=== PATIENT | female | born 1940 | race Caucasian/White ===

== ENCOUNTER 2021-06-13 15:19 | Inpatient (IN) | payer MEDICARE, OTHER ==
[~2021-06-13] VITALS: Ht 162.6 cm; Wt 45.8 kg
[~2021-06-13 15:19] MED LIST: ASPIRIN EC325 MG PO; ATENOLOL25 MG PO; CARAFATE S500 MG/TSP PO; CERTAGEN1 EACH PO; LIPITOR20 MG PO; NORCO 5-325 TA1 EACH PO; NORVASC5 MG PO
[2021-06-13 17:32] LABS: BASOPHIL 0.5 % (0-2); EOSINOPHIL 1.8 % (0-7); HCT 36.7 % (37.0-47.0); LYMPHOCYTE 11.4 % (15-48); MCH 31.2 pg (25.0-31.0); MCHC 32.7 g/dL (32.0-36.0); MCV 95.3 fL (78.0-100.0); MPV 10.6 fL (6.0-9.5); NRBC 0; PLT 224 K/uL (150-400); RBC 3.85 M/uL (4.20-5.40); WBC 6.7 K/uL (4.0-10.5)
[2021-06-13 17:59] LABS: ALBUMIN 3.2 g/dL (3.4-5.0); BILIRUBIN - TOTAL 0.4 mg/dL (0.2-1.0); BUN/CREAT RATIO (CALC) 13.1 RATIO; CREATININE 1.07 mg/dL (0.51-0.95); POTASSIUM 5.3 mmol/L (3.5-5.1); TOTAL PROTEIN 6.2 g/dL (6.4-8.2)
[2021-06-13] MEDS ORDERED: NORVASC5 MG PO (23:17)
[2021-06-13] MEDS ORDERED: LIPITOR20 MG PO (23:18)
[2021-06-13] MEDS ORDERED: ASPIRIN325 MG PO (23:18)
[2021-06-13] MEDS ORDERED: ONE-DAILY MULT1 EACH PO (23:19)
[2021-06-13] MEDS ORDERED: PROTONIX 40MG T40 MG PO (23:20)
[2021-06-14 04:16] LABS: BASOPHIL 0.8 % (0-2); HCT 36.2 % (37.0-47.0); HGB 11.6 g/dl (12.5-16.0); LYMPHOCYTE 16.8 % (15-48); MCH 30.5 pg (25.0-31.0); MCV 95.3 fL (78.0-100.0); MONOCYTE 12.8 % (0-12); MPV 11.2 fL (6.0-9.5); NEUTROPHIL 67.3 % (41-80); NRBC 0; PLT 229 K/uL (150-400); RDW 12.8 % (11.5-14.0)
[2021-06-14 04:40] LABS: ALBUMIN 2.9 g/dL (3.4-5.0); BILIRUBIN - TOTAL 0.4 mg/dL (0.2-1.0); GLOBULIN (CALCULATION) 2.7 g/dL; MAGNESIUM 1.9 mg/dL (1.8-2.4); POTASSIUM 4.9 mmol/L (3.5-5.1); TOTAL PROTEIN 5.6 g/dL (6.4-8.2)
[2021-06-15 06:18] LABS: BASOPHIL 0.4 % (0-2); EOSINOPHIL 1.6 % (0-7); HCT 35.1 % (37.0-47.0); HGB 11.5 g/dl (12.5-16.0); LYMPHOCYTE 13.8 % (15-48); MCH 31.1 pg (25.0-31.0); MCHC 32.8 g/dL (32.0-36.0); MCV 94.9 fL (78.0-100.0); MONOCYTE 11.6 % (0-12); MPV 11.3 fL (6.0-9.5); NEUTROPHIL 72.5 % (41-80); NRBC 0; PLT 208 K/uL (150-400); RDW 12.7 % (11.5-14.0); WBC 6.7 K/uL (4.0-10.5)
[2021-06-15 06:35] LABS: BUN/CREAT RATIO (CALC) 10.1 RATIO; CREATININE 1.09 mg/dL (0.51-0.95); POTASSIUM 4.4 mmol/L (3.5-5.1)
--- NOTE | 2021-06-16 11:18 | NUR ---
MET WITH PT, HER SPOUSE AND SISTER, WE[facility] [employer]YSICAL THERAPY. PT. STATED THAT SHE DID NOT WANT HH. SHE STATED THAT SHE HAS A RW AND A CANE, BUT DOES NOT USE THEM. HER SISTER, AND PT WERE IN AGREEMENT THTAT PT DID NOT NEED HH.
--- NOTE | 2021-06-16 13:30 | NUR ---
06/16/21 Ms. Villatoro reports her spouse to have recently gotten lost on his way to the hospital. She was educated to the [employer] and sitter services. Recommendations were made for them to discuss having the water truck driver's licenses revoked with the PCP. - Patient will be transferred to [facility] on 06/18/21.
--- NOTE | 2021-06-16 17:52 | NUR ---
PATIENT BEING TRANSFERRED TO [facility] D/T DR MEEKS WANTING PATIENT TO HAVE CARDIAC CATH. WILL BE TRANSPORTED VIA EMS. REPORT CALLED. PATIENT AND FAMILY NOTIFIED. PT STABLE AT THIS TIME
== END 2021-06-16 20:20 | disposition other institution (70) | DRG 281 ==
LOC: FER 15:19 → FMS 21:59
PROVIDERS: Emergency Medicine; Nurse Practitioner; ADMIT Internal Medicine
DX: I21.4 Non-ST elevation (NSTEMI) myocardial infarction (principal); I31.3 Pericardial effusion (noninflammatory); E44.0 Moderate protein-calorie malnutrition; Z68.1 Body mass index [BMI] 19.9 or less, adult; I16.0 Hypertensive urgency; I11.9 Hypertensive heart disease without heart failure; Z66 Do not resuscitate; I34.1 Nonrheumatic mitral (valve) prolapse; Z20.822 Contact with and (suspected) exposure to COVID-19; E78.00 Pure hypercholesterolemia, unspecified; K21.9 Gastro-esophageal reflux disease without esophagitis; M19.90 Unspecified osteoarthritis, unspecified site; F41.9 Anxiety disorder, unspecified; Z79.82 Long term (current) use of aspirin; Z79.899 Other long term (current) drug therapy; Z88.2 Allergy status to sulfonamides; Z88.1 Allergy status to other antibiotic agents; Z88.8 Allergy status to other drugs, medicaments and biological substances; Z90.710 Acquired absence of both cervix and uterus; Z98.890 Other specified postprocedural states; Z87.01 Personal history of pneumonia (recurrent); Z86.73 Personal history of transient ischemic attack (TIA), and cerebral infarction without residual deficits
CPT/HCPCS: 36415; 71046; 71275; 76705; 80048; 80053; 80061; 83735; 84484; 85025; 85379; 87040; 93005; 94760; 94762; 97161; 97166; 97535; J1885; J7040; Q9967; U0002